=== PATIENT | female | born 1950 | race Caucasian/White ===

== ENCOUNTER → 2023-11-22 16:58 | Outpatient (REF) | payer MEDICARE, OTHER, SELFPAY | LOC: WDC 16:58 | PROVIDERS: ATTENDING PHYSICIAN Physician Assistant Medical | DX: Z12.31 Encounter for screening mammogram for malignant neoplasm of breast (principal) | CPT/HCPCS: 77063; 77067 ==

== ENCOUNTER → 2024-02-28 08:43 | Outpatient (REF) | payer MEDICARE, OTHER, SELFPAY ==
[2024-02-28 09:20] LABS: % Eosinophils 5.9 % (0-6); % Immature Granulocytes 0.6 % (0-0.5); % Lymphocytes 30.2 % (20.5-51.1); % Monocytes 6.9 % (1.7-9.3); % Neutrophils 55.4 % (42.2-75.2); Absolute Basophils 0.1 10^3/uL (0-0.2); Absolute Eosinophils 0.3 10^3/uL (0-0.7); Absolute Lymphocytes 1.5 10^3/uL (1.2-3.4); Absolute Monocytes 0.3 10^3/uL (0.1-0.6); Absolute Neutrophils 2.7 10^3/uL (1.4-6.5); Hematocrit 42.9 % (37.0-47.0); Hemoglobin 14.4 g/dL (12.0-16.0); Mean Corp Hgb Conc. 33.6 g/dL (33.0-37.0); Mean Corpuscular Hgb 30.4 pg (27.0-31.0); Mean Corpuscular Volume 90.5 fL (81.0-99.0); Mean Platelet Volume 11.1 fL (7.4-10.4); Nucleated Red Blood Cells % 0 %; Platelet Count 201 10^3/uL (130-400); Red Blood Cell Count 4.74 10^6/uL (4.20-5.40); Red Cell Dist. Width 12.7 % (11.5-14.5); White Blood Cell Count 4.9 10^3/uL (4.8-10.8)
[2024-02-28 09:51] LABS: ALT (SGPT) 73 U/L (0-35); AST (SGOT) 50 U/L (14-36); Alkaline Phosphatase 87 U/L (38-126); Blood Urea Nitrogen 18 mg/dl (7-17); Calcium 9.6 mg/dl (8.4-10.2); Carbon Dioxide 28 mmol/L (22-30); Chloride 105 mmol/L (98-107); Glucose 93 mg/dl (70-99); HDL Cholesterol 93 mg/dl; LDL Cholesterol, Calculated 100 mg/dl; Potassium 4.7 mmol/L (3.5-5.1); Sodium 140 mmol/L (135-145); Total Bilirubin 0.5 mg/dl (0.2-1.3); Total Cholesterol 203 mg/dl (50-199); Total Protein 6.3 g/dl (6.3-8.2); Triglyceride 52 mg/dl (10-149); Very Low Density Lipoprotein 10 mg/dl (0-30); eGFR > 60.00
[2024-02-28 10:22] LABS: TSH Reflex To Free T4 2.66 uIU/ml (0.47-4.68)
[2024-02-28 18:33] LABS: Hepatitis B Core Ab, Total Negative (Negative)
[2024-02-28 19:45] LABS: Hepatitis A Antibody, Total Negative (Negative)
== END ==
LOC: REG 08:43
PROVIDERS: ATTENDING PHYSICIAN Physician Assistant Medical
DX: E78.2 Mixed hyperlipidemia (principal); M81.0 Age-related osteoporosis without current pathological fracture
CPT/HCPCS: 36415; 80053; 80061; 84443; 85025; 86704; 86708